=== PATIENT | male | born 1960 | race Asian ===

== ENCOUNTER 2020-03-08 17:07 | Emergency (ER) | payer OTHER, SELFPAY ==
[~2020-03-08] VITALS: Ht 172.7 cm; Wt 81.6 kg
[~2020-03-08 17:07] MED LIST: NORCO1 TA2 PO; OLANZAPINE5 M2; WELLBUTRIN SR200 MG
[2020-03-08 17:09] VITALS: Ht 172.7 cm; Wt 81.6 kg
[2020-03-08 17:50] VITALS: BP 124/76
== END 2020-03-08 19:50 | disposition home or self-care (01) ==
LOC: ED 17:07
DX: U07.1 COVID-19 (principal); B34.9 Viral infection, unspecified; Z88.6 Allergy status to analgesic agent
CPT/HCPCS: U0003

== ENCOUNTER 2020-03-19 14:06 | Inpatient (IN) | payer BC, SELFPAY ==
[~2020-03-19] VITALS: Ht 176.5 cm; Wt 78.9 kg
[2020-03-19 14:27] VITALS: Ht 176.5 cm; Wt 78.9 kg
--- NOTE | 2020-03-19 14:40 | NUR ---
PATIENT BIBA, C/O SOB AND YELLO PRODUCTIVE COUGH X1 WEEK. PATIENT STATES +COVID19 ON 03/08/20. PATIENT AAOX4, NAD NOTED AT THIS TIME. PATIENT SPEAKIN IN FULL CLEAR SENTENCES. NOTED PATIENT SPO2 AT 93% ROOM AIR AT ARRIVAL, PLACED PATIENT ON 2L OF O2 VIA NC AT THIS TIME. PATIENT GOWNED, AWAITING MSE, CALL LIGHT WITHIN REACH.
--- NOTE | 2020-03-19 15:02 | NUR ---
EKG IN PROGRESS AT THIS TIME.
[2020-03-19 15:45] LABS: BASOPHIL % 0.5 % (0-2); PLATELET COUNT 259 x10^3mcL (130-400); RED CELL DISTRIBUTION WIDTH 14.2 % (11.5-14.5)
[2020-03-19 15:58] LABS: CALCIUM 8.5 mg/dL (8.5-10.1); CARBON DIOXIDE 26.3 mmol/L (21-32); CHLORIDE SERUM 99 mmol/L (98-107); CREATININE SERUM 0.9 mg/dL (0.7-1.3); GFR1 > 60 mL/min; GLUCOSE SERUM 124 mg/dL (74-106); POTASSIUM SERUM 3.8 mmol/L (3.5-5.1); SODIUM SERUM 135 mmol/L (136-145)
[2020-03-19 16:10] LABS: ALKALINE PHOSPHATASE 90 U/L (46-116); ALT/SGPT 46 U/L (16-63); AST/SGOT 41 U/L (15-37); BILIRUBIN TOTAL 0.4 mg/dL (0.20-1.00); LACTIC DEHYDROGENASE (LDH) 235 U/L (100-190); TOTAL PROTEIN, SERUM 7.8 g/dL (6.4-8.2)
--- NOTE | 2020-03-19 18:12 | NUR ---
PATIENT STATES 4 HEADACHE, NOTIFIED DR. ENRIQUEZ
--- NOTE | 2020-03-19 18:30 | NUR ---
PATIENT MEDICATED WITH TYLENOL 1000MG FOR 07/29 HEACACHE. PLEASE SEE EMAR.CALL LIGHT WITHIN REACH
--- NOTE | 2020-03-19 18:57 | NUR ---
PATIENT BELONGING INCLUDE; CLOTHES, SANDALS, CELL PHONE, AND OTHER PERSONAL BELONGOING IN BLUE REUSABLE BAD
--- NOTE | 2020-03-19 19:14 | NUR ---
REPORT GIVEN TO RORY JONES TO ASSUME PATIENT CARE
--- NOTE | 2020-03-19 19:35 | NUR ---
FIRST ENCOUNTER WITH PT. WHO IS LAYING IN BED QUIETLY IVF INFUSING , HOOKED ON MONITOR. AWAITING BED ASSIGNMENT.
--- NOTE | 2020-03-19 20:49 | NUR ---
PT. REQUESTED " SOME FOOD " PROVIDED WITH A SANDWICH AND SODA.
--- NOTE | 2020-03-19 21:20 | NUR ---
RECEIVED PT FROM ED VIA JOSE, CAME IN DUE TO NEAR SYNCOPE, COUGH, POOR APPEITE AND SOB. AAOX4. STATED THAT HE WAS COVID POSITIVE SINCE 03/08/20. AAOX4. DENIES HEADACHE/DIZZINESS. SOB ON EXERTION. LUNG SOUNDS DIMINISHED ON AUSCULTATION. STATED THAT HE HAS PRODUCTIVE COUGH, ABLE TO EXPECTORATE SCANT AMOUNT OF YELLOW PHLEGM. DENIES ABDOMINAL DISCOMFORT. VOIDS. IV SITE PATENT ADN INTACT. SIDE RAILS UPX2. CALL LIGHT ON REACH. ENDORSED TO PRIMARY NURSE ROS FOR CONTINUITY OF CARE
[2020-03-19 21:30] VITALS: BP 129/83
--- NOTE | 2020-03-20 00:35 | NUR ---
PATIENT SLEEPING AT THIS TIME. NO ACUTE DISTRESS. EU BREATHING NOTED ON CPAP AT THIS TIME. WILL CONTINUE TO MONITOR. WILL ENDORSE CARE TO ONCOMING SHIFT NURSE.
[2020-03-20 05:25] VITALS: BP 129/83
[2020-03-20 05:48] VITALS: BP 110/79
[2020-03-20 07:39] LABS: ALKALINE PHOSPHATASE 98 U/L (46-116); ALT/SGPT 65 U/L (16-63); AST/SGOT 57 U/L (15-37); BILIRUBIN TOTAL 0.54 mg/dL (0.20-1.00); CALCIUM 8.9 mg/dL (8.5-10.1); CHLORIDE SERUM 100 mmol/L (98-107); GFR1 > 60 mL/min; GLUCOSE SERUM 100 mg/dL (74-106); POTASSIUM SERUM 4.3 mmol/L (3.5-5.1); SODIUM SERUM 138 mmol/L (136-145); TOTAL PROTEIN, SERUM 8.1 g/dL (6.4-8.2)
[2020-03-20 07:41] LABS: ALBUMIN 2.9 g/dL (3.4-5.0)
--- NOTE | 2020-03-20 08:05 | NUR ---
Nutrition Note Nursing Trigger received "Admitted with potential risk diagnosis" Pt admitted with COVID 19, PNA per H&P documentations on 03/19. Pt does not meet high risk criteria per nutrition care policy and standards. Pt will be assessed as moderate risk and initial assessment due 03/23-
[2020-03-20 08:26] LABS: BASOPHIL % 0.3 % (0-2); PLATELET COUNT 288 x10^3mcL (130-400); RED CELL DISTRIBUTION WIDTH 13.9 % (11.5-14.5)
[2020-03-20 09:08] VITALS: BP 120/78
--- NOTE | 2020-03-20 09:49 | NUR ---
AAO TIMES 4. TELE # 41 SR. LUNGS CTA BUL, DIMINISHED BASES. O2 SAT ON 2L NC IS 100%. BS'S ACTIVE TIMES 4. JERONIMO STRONG. BRP SELF. IV SITE LAC PATENT, CDI. COOPERATIVE. NO C/O PAIIN.
[2020-03-20 12:43] VITALS: BP 115/79
--- NOTE | 2020-03-20 15:09 | NUR ---
CALLED TO IF HE WANTS TO ORDER ANOTHER PCR, LAST PCR DONE WAS AND HE STATED NO NEED.
[2020-03-20 16:51] VITALS: BP 121/83
--- NOTE | 2020-03-20 17:35 | NUR ---
AAO TIMES 4. TELE # [address] O2 2L NC. VS'S STABLE. SOB WITH EXERTION. COOPERATIVE. IV SITE CDI. NO C/O PAIN.
--- NOTE | 2020-03-20 21:00 | NUR ---
RECEIVED AWAKE, ALERT, ORIENTED X4, BREATH SOUNDS CLEAR, DIMINISHED ON THE BASES. WITH SOB ON EXERTION. O2 AT 2LPM VIA N/C WITH O2 SAT 95%. C/O HEADACHE AND WAS GIVEN TYLENOL. TEMP 98.2. PLAN OF CARE NOTED AND IMPLEMENTED, ALL NEEDS ATTENDED, WILL CONTINUE TO MONITOR.
[2020-03-20 22:13] VITALS: BP 104/70
--- NOTE | 2020-03-20 23:01 | NUR ---
PT PLACED ON NOC CPAP W/OUT INCIDENT. SPO2 MAINTAINING AT 96%. NO DISTRESS NOTED, RESPIRATIONS E/U. WILL CONT. TO MONITOR.
[2020-03-21 06:11] VITALS: BP 111/76
--- NOTE | 2020-03-21 06:44 | NUR ---
RESTING IN BED, O2 AT 2LPM VIA N/C WITH O2 SAT 96%. DENIES ANY PAIN, VSS, NO ACUTE DISTRESS NOTED, WILL CONTINUE TO MONITOR.
[2020-03-21 07:10] LABS: BASOPHIL % 0.5 % (0-2); PLATELET COUNT 319 x10^3mcL (130-400)
[2020-03-21 07:32] LABS: ALKALINE PHOSPHATASE 98 U/L (46-116); ALT/SGPT 78 U/L (16-63); AST/SGOT 49 U/L (15-37); BILIRUBIN DIRECT 0.18 mg/dL (0.0-0.2); BILIRUBIN TOTAL 0.55 mg/dL (0.20-1.00); CALCIUM 8.9 mg/dL (8.5-10.1); CARBON DIOXIDE 30.5 mmol/L (21-32); CHLORIDE SERUM 100 mmol/L (98-107); CREATININE SERUM 0.9 mg/dL (0.7-1.3); GFR1 > 60 mL/min; GLUCOSE SERUM 101 mg/dL (74-106); POTASSIUM SERUM 4.2 mmol/L (3.5-5.1); SODIUM SERUM 137 mmol/L (136-145); TOTAL PROTEIN, SERUM 7.8 g/dL (6.4-8.2)
[2020-03-21 07:37] LABS: ALBUMIN 2.7 g/dL (3.4-5.0)
[2020-03-21 08:45] VITALS: BP 109/78
--- NOTE | 2020-03-21 10:18 | NUR ---
AAO TIMES 4. TELE # 41 SR. LUNGS CTA BUL, DIMINISHED BASES. O2 SAT ON 2L NC 99% BS'S ACTIVE TIMES 4. DECKER STRONG. PERIPHERAL PULSES PALPABLE. NO EDEMA. COOPERATIVE. SOB WITH ACTIVITY ONLY.
[2020-03-21 13:00] VITALS: BP 114/79
--- NOTE | 2020-03-21 14:38 | NUR ---
1 UNIT OF CONVALESCENT PLASMA STARTED AT 1310, AT 1325 VS'S WERE WNL. THE UNIT FINISHED INFUSING AT 1410. NO TRANSFUSION REACTIONS NOTED.
[2020-03-21 16:45] VITALS: BP 114/77
--- NOTE | 2020-03-21 18:14 | NUR ---
AAO TIMES 4. TELE # 41 SR. O2 2L NC, O2 SAT 99%. COOPERATIVE. HE TOLERATED THE CONVALESCENT PLASMA AND REMDESEVIR TODAY. IV SITE LAC PATENT, CDI.
--- NOTE | 2020-03-21 20:00 | NUR ---
ASSESSMENT COMPLETE PLAN OF CARE REVIEWED CALL LIGHT IN REACH CONDITION GUARDED WILL CONTINUE TO MONITOR AND ASSESS
[2020-03-21 21:00] VITALS: BP 129/82
--- NOTE | 2020-03-22 00:48 | NUR ---
CONDITION REMAINS GUARDED NO CHANGES NOTED WILL CONTINUE TO MONITOR AND ASSESS
--- NOTE | 2020-03-22 05:34 | NUR ---
CONDITON GUARDED ALL NEEDS ANTICIPATED AND MET
[2020-03-22 05:50] VITALS: BP 123/77
--- NOTE | 2020-03-22 07:30 | NUR ---
RECEIVED PT FROM RESIDENTIAL INTERIOR DESIGNER RN. AOX4 ABLE TO MAKE NEEDS KNOWN, DENIES CELESTE/DIZZINESS. TELE 41 SR, DENIES CP, S1 AND S2 NOTED. ON 2L NC, DENIES SOB/COUGH, RESP E/U, BIPAP USE AT NIGHT. ABDOMEN SOFT/ROUND, DENIES N/V/D, BOWEL SOUNDS PRESENT. BRP. NO SKIN ISSUES. NO C/O APIN. IV TO LAC 20G IN PLACE, CDI. CALL LIGHT IN REACH, WILL CONTINUE TO MONITOR.
[2020-03-22 07:34] LABS: BILIRUBIN DIRECT 0.16 mg/dL (0.0-0.2); BILIRUBIN TOTAL 0.43 mg/dL (0.20-1.00); TOTAL PROTEIN, SERUM 7.8 g/dL (6.4-8.2)
[2020-03-22 07:35] LABS: ALBUMIN 2.8 g/dL (3.4-5.0)
[2020-03-22 08:21] VITALS: BP 121/76
[2020-03-22 13:18] VITALS: BP 124/75
[2020-03-22 16:15] VITALS: BP 125/76
--- NOTE | 2020-03-22 21:30 | NUR ---
PT PRESENTS WITH CALM DEMEANOR IN BED UPON INITAL ASSESSMENT. PT COVID POSITIVE. PT DENIES ANY PAIN AT THIS TIME. PT ALERT AND ORIENTED X4. LUNG SOUNDS WERE DIMINISHED WITH CRACKLES AT BILATERAL BASES. PT ON 2L NC AND TOLERATING WELL. NO SOB OR ACUTE DISTRESS. S1 AND S2 HEARD. PT DENIES CHEST PAIN AND AND IS ON TELE 41 WITH NSR. PT ABD SOFT AND NON TENDER. PT AMBULATORY AND MOVES INDEPENDENTLY WITH NO S/S OF WEAKNESS. VOIDS IN URINAL OR BATHROOM. WILL CONTINUE TO MONITOR PT.
--- NOTE | 2020-03-22 21:38 | NUR ---
I HAVE REVIEWED THE DATA COLLECTION BY KAREN FINCH ENTERED ON (DATE/TIME):03/22/2020 7P-7A I CONCUR WITH THE DATA AND ANY EXCEPTIONS OR COMMENTS ARE LISTED BELOW:
[2020-03-22 22:22] VITALS: BP 122/77
--- NOTE | 2020-03-23 04:54 | NUR ---
PT SLEPT WELL THROUGHOUT THE NIGHT. PT REMAINED STABLE WITH NO SIGNS OF ACUTE DISTRESS OR SOB. TELE MONITOR REVEALED NSR THROUGHOUT THE NIGHT. WILL CONTINUE TO MONITOR PATIENT AND REPORT TO ONCOMING RN.
[2020-03-23 06:20] VITALS: BP 128/82
--- NOTE | 2020-03-23 07:02 | NUR ---
RECEIVED PT FROM FAIRING WORKER RN. AOX4 ABLE TO MAKE NEEDS KNOWN, ABLE TO FOLLOW COMMMANDS. TELE 41 SR DENIES CP. DIMINISHED LUNG SOUNDS, ON 2L NC, DENIES SOB/COUGH. AMBULATORY, NO SKIN ISSUES. NO C/O PAIN. IV TO LAC IN PLACE, CDI. CALL LIGHT IN REACH, WILL CONTINUE TO MONITOR.
[2020-03-23 07:49] LABS: ALBUMIN 2.9 g/dL (3.4-5.0); BILIRUBIN DIRECT 0.14 mg/dL (0.0-0.2); BILIRUBIN TOTAL 0.41 mg/dL (0.20-1.00); TOTAL PROTEIN, SERUM 7.8 g/dL (6.4-8.2)
[2020-03-23 08:37] VITALS: BP 128/88
[2020-03-23 15:04] VITALS: BP 126/81
--- NOTE | 2020-03-23 19:58 | NUR ---
ASSESSED PT AT BEGINNING OF SHIFT. PT PRESENTS WITH CALM DEMEANOR AND VERY QUIET. PT DENIES PAIN AT THIS TIME. PT ALERT AND ORIENTED X4 NO SENSORY DEFECITS OR HEADACHE PRESENT. PT STATES "BREATHING EASIER TODAY". LUNG SOUNDS DIMINISHED THROUGHOUT BILATERAL LOBES. PT DENIES SOB OR ACUTE DISTRESS. ON 2L NC AND TOLERATING WELL. STATES BIPAP WAS HELPFUL LAST NIGHT AND IS ALSO GOING TO BE ON BIPAP TONIGHT WELL WITH RT. S1 AND S2 HEARD UPON AUSCULTATION.PT DENIES CHEST PAIN AT THIS TIME. TELE 41 WITH NSR. BOWEL SOUNDS PRESENT, BM TODAY 03/23. PT AMBULATROY TO BATHROOM AND VOIDS INDEPENDENTLY. NO WEAKNESS PRESENT. IV IN LFA PATENT AND SALINE LOCKED. WILL CONTINUE TO MONITOR PATIENT AT THIS TIME.
--- NOTE | 2020-03-23 20:25 | NUR ---
I HAVE REVIEWED THE DATA COLLECTION BY KAREN FINCH ENTERED ON (DATE/TIME):03/23/2020 7P-7A I CONCUR WITH THE DATA AND ANY EXCEPTIONS OR COMMENTS ARE LISTED BELOW:
--- NOTE | 2020-03-24 04:51 | NUR ---
PT SLEPT WELL THROUGHOUT THE NIGHT. PT PUT ON BIPAP BY RT AND TOLERATED WELL. TELE NSR WIHT HR IN 60-70'S. PT DENIES PAIN AT THIS TIME. WILL CONTINUE TO MONITOR PATIENT AND REPORT TO ONCOMING RN.
[2020-03-24 06:04] VITALS: BP 131/81
[2020-03-24 08:06] LABS: ALKALINE PHOSPHATASE 85 U/L (46-116); ALT/SGPT 135 U/L (16-63); AST/SGOT 51 U/L (15-37); BILIRUBIN DIRECT 0.14 mg/dL (0.0-0.2); BILIRUBIN TOTAL 0.29 mg/dL (0.20-1.00); CALCIUM 8.5 mg/dL (8.5-10.1); CARBON DIOXIDE 31.1 mmol/L (21-32); CHLORIDE SERUM 104 mmol/L (98-107); CREATININE SERUM 0.9 mg/dL (0.7-1.3); GFR1 > 60 mL/min; GLUCOSE SERUM 93 mg/dL (74-106); SODIUM SERUM 142 mmol/L (136-145); TOTAL PROTEIN, SERUM 7.3 g/dL (6.4-8.2)
[2020-03-24 08:12] LABS: ALBUMIN 2.7 g/dL (3.4-5.0)
[2020-03-24 08:48] LABS: BASOPHIL % 0.5 % (0-2); RED CELL DISTRIBUTION WIDTH 14.3 % (11.5-14.5)
[2020-03-24 08:59] LABS: PLATELET COUNT 405 x10^3mcL (130-400)
[2020-03-24 09:22] VITALS: BP 117/67
[2020-03-24 12:05] VITALS: BP 106/69
--- NOTE | 2020-03-24 13:36 | NUR ---
RESTING ON BED, SUPINE, 96% ON ROOM AIR.
--- NOTE | 2020-03-24 13:50 | NUR ---
REC'D REPORT FROM SONIA JONES. SPO2 97% ON RA. TELE READING NSR HR 72. NO COMPLAINTS AT THIS TIME. WILL CONTINUE TO MONITOR.
--- NOTE | 2020-03-24 13:57 | NUR ---
1. Continue with regular diet as tolerate
--- NOTE | 2020-03-24 13:57 | NUR ---
Initial Nutrition Assessment: RangelA NARAYAN ENRIQUEZ 59M Dx: COVID, PNA PMHx: Depression/anxiety PSHx: none noted Labs: (03/24) BUN 19H, AST 51H, ALT 135H, albumin 2.7L (03/19) CRP 11H Meds: Decadron, Vitamin C, vitamin D, heparin sodium, Remdesevir, Tylenol Diet: Regular PO intake since admission: 50-100% x 11 meals with average PO intake of 84% Ht: 176.53cm/69.5in Wt: 78.925kg/174lbs BMI: 25.3 Bed scale: not accessible IBW: 74.09kg/163lbs %IBW: 106.25% UBW: unknown Age: 59 Food Allergies: unknown Edema: none noted Last BM: 03/23 Skin: skin intact Dalton: 21 Per H and P (03/20), This is a 59-year-old male past medical history significant for depression/anxiety, presents to ED with worsening shortness of breath, cough and decreased appetite for approximately 1 week. Of note patient reports he recently tested positive for Covid, however but has been at home self-isolating. Otherwise patient denies fever/chills, chest pain, abdominal pain, nausea/vomiting, diarrhea/constipation, headache/dizziness and urinary symptoms. In ED patient was afebrile, vital signs stable. ED work-up chest x-ray revealed bilateral airspace opacities. Patient's noted to have elevated LDH, CRP, D-dimer, fibrinogen. Patient started on empiric IV antibiotics and admitted for further evaluation/treatment. Per H and P (03/24) Acute hypoxic respiratory failure, COVID PNA, multifocal PNA, h/o anxiety/depression RD Note (03/24/2020) Per progress note (03/23), pt continue to be on remdesivir and 2L O2. Per pt's RN, pt did not exhibit signs of GI distress and tolerating current diet. Pt had average PO intake of 84% since admission. Pt's diet is providing approximately 2264kcal and 101.6g protein meeting 100% of estimated kcal and protein needs. Problem with: N/V/D/C: none per RN Problems with: Chewing: Swallowing: Pt tolerating diet Current appetite: good per flowsheet and average intake Recent wt change: unknown %wt change: unknown Vitamin/Supplement use: unknown Special diet at home: unknown Physical activity: unknown Nutrition education given (specify specific nutrition education and handout given): not given at this time d/t no indication for nutrition education. Food-drug interactions? Education given? n/a Estimated Nutritional Needs Based on ideal body weight (74kg) Energy: 9448-9861 kcal/day (30-35 kcal/kg for COVID) Protein: 88-111 g/day (1.2-1.5 g/kg for COVID) Fluid: 4076-9464 mL/day (1 mL/kcal) Nutrition Diagnosis: 1. Increased energy and protein need r/t viral infection a/e/b pt has COVID. Intervention 1. Continue with regular diet as tolerate Monitor/Evaluate Goal: PO intake at least 75% of estimated needs Monitor: PO intake, Labs, GI function F/U in 3-5 days as moderate risk 03/27-
[2020-03-24 15:53] VITALS: BP 135/84
[2020-03-24 20:56] VITALS: BP 126/72
--- NOTE | 2020-03-24 21:00 | NUR ---
Awake and verbally responsive. No respiratory distress noted on room air. Denies pain. Denies n/v. Ambulating in the room. Due meds given. Will cont.to monitor. Call light within reach.
--- NOTE | 2020-03-25 00:48 | NUR ---
Resting at this time. Denies pain. No respiratory distress noted.
--- NOTE | 2020-03-25 04:20 | NUR ---
Afebrile. No significant change in condition noted. Remained on room air. No SOB noted. In no apparent distress. Droplet/contact isolation, proper use of PPE and good hand hygiene observed.
[2020-03-25 05:27] VITALS: BP 128/84
[2020-03-25 07:59] VITALS: BP 126/76
[2020-03-25 09:20] LABS: BILIRUBIN DIRECT 0.15 mg/dL (0.0-0.2); BILIRUBIN TOTAL 0.39 mg/dL (0.20-1.00)
--- NOTE | 2020-03-25 10:46 | NUR ---
The patient is alert and oriented x4. The patient is able to ambulate independently. He has no complaints of pain. All medications per provider orders given. Oxygen saturation is around 98% room air. No SOB noted. The patient is made comfortable. Call light within reach. Will continue to monitor.
[2020-03-25 12:26] VITALS: BP 123/85
[2020-03-25 15:58] VITALS: BP 120/76
--- NOTE | 2020-03-25 20:10 | NUR ---
PATIENT IS A/O X4. ON TELE 41. NSR. NO EDEMA NOTED. LUNG SOUNDS DIM AT BASES. DENIES SOB. ON ROOM AIR. SATURATION 97%. NORMOACTIVE BOWEL SOUNDS X4. LAST BM 03/23/20. VOIDS FREELY. AMBULATORY. SKIN INTACT. DENIES ANY PAIN AT THIS TIME. LAC 20G CDI. BED IN LOWEST AND LOCKED POSITION. CALL LIGHT WITHIN REACH, WILL CONT TO MONITOR.
[2020-03-25 21:25] VITALS: BP 123/79
--- NOTE | 2020-03-26 00:05 | NUR ---
PATIENT RESTING IN BED WITH EYES CLOSED. BREATHING E/U. NO DISTRESS NOTED. WILL CONT TO MONITOR.
[2020-03-26 05:32] VITALS: BP 120/75
--- NOTE | 2020-03-26 07:10 | NUR ---
PATIENTS BREATHING E/U. NO DISTRESS NOTED. WILL ENDORSE TO AM SHIFT NURSE.
[2020-03-26 08:49] VITALS: BP 131/79
[2020-03-26] MEDS ORDERED: DEC4 PO (10:33)
[2020-03-26] MEDS ORDERED: ELIQUIS5 MG PO (10:34)
[2020-03-26 12:26] VITALS: BP 130/80
--- NOTE | 2020-03-26 12:37 | NUR ---
THE PATIENT IS ALERT AND ORIENTED X4. ALL MEDICATIONS GIVEN PER MD ORDERS. ON ROOM AIR, NO SOB NOTED. O2 SAT.= 98%-99%. ALL DOSES FOR REMDESIVIR IV- GIVEN PER PROVIDER ORDERS. THE PATIENT IS STABLE, AMBULATES INDEPENDENTLY, VITAL SIGNS ARE WITHIN NORMAL LIMITS. HAS NO COMPLAINTS OF PAIN. THE PATIENT HAS ORDERS FOR DISCHARGE, PATIETN AWARE, BUT WANTS TO LEAVE WITH (228B). I EXPLAINED THAT WE WILL COORDINATE IT (THE NURSE FOR HIS ). WILL CONTINUE TO MONITOR. CALL LIGHT WITHIN REACH.
[2020-03-26 14:27] VITALS: BP 128/84
== END 2020-03-26 16:06 | disposition home or self-care (01) | DRG 177 ==
LOC: ED 14:06 → DU 19:11
PROVIDERS: Emergency Medicine; Internal Medicine Infectious Disease; ADMIT Hospitalist; ATTEND Hospitalist
PROC: 5A09357 Assistance with Respiratory Ventilation, Less than 24 Consecutive Hours, Continuous Positive Airway Pressure (ICD-10-PCS; 2020-03-20)
PROC: XW13325 Transfusion of Convalescent Plasma (Nonautologous) into Peripheral Vein, Percutaneous Approach, New Technology Group 5 (ICD-10-PCS; 2020-03-21)
PROC: XW033E5 Introduction of Remdesivir Anti-infective into Peripheral Vein, Percutaneous Approach, New Technology Group 5 (ICD-10-PCS; 2020-03-21)
PROC: 5A09357 Assistance with Respiratory Ventilation, Less than 24 Consecutive Hours, Continuous Positive Airway Pressure (ICD-10-PCS; principal; 2020-03-23)
DX: U07.1 COVID-19 (principal); J12.89 Other viral pneumonia; J96.01 Acute respiratory failure with hypoxia; F32.9 Major depressive disorder, single episode, unspecified; Z88.6 Allergy status to analgesic agent
CPT/HCPCS: 83880; 85378; G0378; J0456; J0696; J1644; J2405; J7040; J7060; J8540

== ENCOUNTER 2020-05-06 09:50 | Emergency (ER) | payer OTHER ==
[~2020-05-06] VITALS: Ht 175.3 cm; Wt 82.6 kg
[~2020-05-06 09:50] MED LIST changes: +DEC4 PO; +ELIQUIS5 MG PO
[2020-05-06 10:16] VITALS: Ht 175.3 cm; Wt 82.6 kg
[2020-05-06 11:35] VITALS: BP 120/80
== END 2020-05-06 11:35 | disposition home or self-care (01) ==
LOC: ED 09:50
DX: M65.331 Trigger finger, right middle finger (principal); Z88.6 Allergy status to analgesic agent
CPT/HCPCS: A4570